=== PATIENT | male | born 1985 | race African-American/Black ===

== ENCOUNTER 2023-01-24 14:34 | Emergency (ER) | payer BC, SELFPAY ==
[2023-01-24 14:45] VITALS: BP 140/85; PULSE 74; RESP 18; TEMP 36.8; O2SAT 100
--- NOTE | 2023-01-24 15:00 | DI.RAD_ITS ---
Exam(s) XR LUMBAR SPINE COMPLETE EXAM: XR LUMBAR SPINE COMPLETE CLINICAL HISTORY: pain. TECHNIQUE: 2D digital imaging was performed. COMPARISON: No exams were available for comparison FINDINGS: Five views. No evidence of fracture, listhesis, or pars defects. Mild disc space narrowing at L5-S1 level noted but this may be related to the sacralization of the L5 segment which is evident here. Other disc spa jeronimo exhibit normal height. Bone density normal. No osseous lesions. No scoliosis. Sacroiliac join ts unremarkable. Facet joints appear unremarkable. IMPRESSION: Sacralized L5 segment. No other significant findings on these views of the lumbosacral spinal column . DATA REPOSITORY: RADIATION DOSE DELIVERED:
--- NOTE | 2023-01-24 15:03 | ED.GENADUL_ITS ---
Discharge Plan Disposition Patient Disposition: Home Condition: Stable Discharge Details Chief Complaint: Nk/Back Pain Clinical Impression: Lumbar contusion Primary Care Provider: Elis Nayak ED Provider: Heath Mckinney Home Meds and New Rx's Prescriptions: No Action No Known Home Meds Discharge Instructions Instructions: Contusion in Adults (ED) Additional Instructions: follow up with your primary care provider if pain continues in a week you can take tylenol and ibuprofen for pain, follow dosing instructions on the packaging you can also use over the counter lidocaine patches if you have severe pain, new pain such as abdominal pain, feel more ill or have blood in your urine return to the emergency department Medical Decision Making 37 yo male with no significant pmhx comes in with lower back pain. He states he was on a bed lastnight playing with his kid when he fell off and landed on his back and landed on a small toy car. Denies hitting head or loc, no head pain, neck pain, upper back, chest or abdomen pain since. HAs lower mid lumbar pain since so came here for an evaluation. He is in no distress on exam speaking clearly. He has tenderness over l4 with no palpable deformities, no saddle anesthesia, no cva tenderness, no abdominal tenderness. Suspect contusion but will obtain xrays to evaluate for fracture, no findings on exam to suggest cauda equina or spinal cord injury. He denies any hematuria today when urinating so doubt kidney injury pt stable, xray on my read negative and he has no new pain, discussed with him likely contusion, advised to f/u with pcp if pain continues in a week and return precautions given Differential Diagnosis Differential Diagnosis: strain, contusion, fracture Imaging Data Radiologic Study: Attestation: I personally reviewed and interpreted this imaging study as follows: Imaging: X-Ray My impression: no acute findings HPI General Mode of arrival: ambulatory . Date/Time Provider Initiated Documentation: 01/24/23 14:57 . Limitations to Documentation: no limitations . Information obtained by: patient . History of Present Illness 37 year old M presents to the emergency department with the chief complaint of lower back pain s/p fall last night, described as moderate, Patient started experiencing this day(s) (1) and it has been constant. No relieving factors improve symptom(s), No exacerbating factors reported . Patient notes no other symptoms.. Related Data Home Medications Medication Instructions Recorded Confirmed Unknown [No Known Home Meds] 01/24/23 01/24/23 Allergies Allergy/AdvReac Type Severity Reaction Status Date / Time No Known Allergies Allergy Unverified 01/24/23 14:48 General Stated Complaint: Nk/Back Pain ODIN: 4 Review of Systems All systems reviewed & are unremarkable except as noted in HPI and below Constitutional Constitutional: Denies chills, Denies fever(s) and Denies weakness Eyes Eyes: Denies loss of vision Cardiovascular Cardiovascular: Denies chest pain and Denies dyspnea Respiratory Respiratory: Denies cough and Denies dyspnea Gastrointestinal Gastrointestinal: Denies abdominal pain, Denies nausea and Denies vomiting Genitourinary Genitourinary: Denies dysuria Neurologic Neurologic: Denies loss of vision and Denies weakness PFSH All Active Problems (Updated 01/24/23 @ 15:55 by Heath Mckinney MD) Lumbar contusion (Acute) Social History Smoking/Tobacco Use Status: Never Smoking risk assessment performed?: Yes Alcohol Intake: never Drug use: Never Substance use type: does not use Do you feel safe at home: Yes Do you feel safe in your relationship?: Yes Exam Const General: no acute distress Orientation: alert HENMT Head: normal to inspection Ears: external ears normal General nose exam: external nose normal Mouth: moist mucous membranes Eyes General: appearance normal, both eyes and all related structures Neck Neck: normal visual inspection Resp Effort & Inspection: normal respiratory effort and able to speak in complete sentences Cardio Rate: regular rate GI Palpation: soft and nontender Back/Spine/Pelvis Back: no CVA tenderness Thoracic/Lumbar Spine: thoracic and lumbar spine normal to inspection Skin General skin exam: no rashes or lesions noted Neuro General: patient alert and patient oriented x3 Extrem General: normal to inspection Psych Mental Status: mental status grossly normal Course Vital Signs Vital signs: Vital Signs Temperature 36.8 C 01/24/23 14:45 Pulse 74 01/24/23 14:45 Respiratory Rate 18 01/24/23 14:45 Blood Pressure 140/85 01/24/23 14:45 Pulse Oximetry 100 01/24/23 14:45 Temperature 36.8 C 01/24/23 14:45 Temperature Source Skin 01/24/23 14:45 Pulse 74 01/24/23 14:45 Respiratory Rate 18 01/24/23 14:45 Respiratory Effort Normal 01/24/23 14:48 Blood Pressure 140/85 01/24/23 14:45 Blood Pressure Position Sitting 01/24/23 14:45 Pulse Oximetry 100 01/24/23 14:45 Oxygen Delivery Method Room Air 01/24/23 14:45 Oxygen Flow Rate 0 01/24/23 14:45 Pain Level 4 01/24/23 14:45
== END 2023-01-24 16:11 | disposition home or self-care (01) ==
PROVIDERS: Emergency Provider Emergency Medicine; PCP Nurse Practitioner Family
DX: S30.0XXA Contusion of lower back and pelvis, initial encounter (principal); W06.XXXA Fall from bed, initial encounter; Y93.89 Activity, other specified; Y92.013 Bedroom of single-family (private) house as the place of occurrence of the external cause; Y99.9 Unspecified external cause status
CPT/HCPCS: 99283; 72110